=== PATIENT | male | born 1945 | race Caucasian/White ===

== ENCOUNTER 2018-11-02 14:56 | Observation (INO) | payer BC, MEDICARE ==
[~2018-11-02] VITALS: Ht 182.9 cm; Wt 98.2 kg
[2018-11-04 08:12] VITALS: BP 131/77
== END 2018-11-04 10:43 | disposition home or self-care (01) ==
LOC: ED 20:59 → INTOOBSV 21:22 → EDIP 21:22 → 3NE 22:18 → DCLOUNGE 11-04 10:43
PROVIDERS: ADMIT Internal Medicine; ATTEND Internal Medicine
DX: K52.9 Noninfective gastroenteritis and colitis, unspecified (principal); E86.0 Dehydration; I10 Essential (primary) hypertension; R74.8 Abnormal levels of other serum enzymes; R71.8 Other abnormality of red blood cells; G62.9 Polyneuropathy, unspecified; M54.9 Dorsalgia, unspecified; G89.29 Other chronic pain; Z87.891 Personal history of nicotine dependence; Z86.711 Personal history of pulmonary embolism; Z79.01 Long term (current) use of anticoagulants; Z79.899 Other long term (current) drug therapy
CPT/HCPCS: 36415; 70450; 71045; 74177; 80053; 81003; 82550; 82607; 83690; 84484; 85025; 85610; 85730; 87040; 87046; 87324; 87427; 89055; 93005; 96361; 96374; 96375; 99284; G0378; J2270; J2405; J7030; Q9967; 99285